=== PATIENT | female | born 1985 ===

== ENCOUNTER 2016-12-04 17:53 | Emergency (ER) | payer OTHER ==
[2016-12-04 17:53] VITALS: BMI 28.3
[2016-12-04] MEDS ORDERED: HYDROmorphone 0.5 mg/0.5 ml ISec IVP STA (18:19)
[2016-12-04] MEDS ORDERED: HYDROmorphone 0.5 mg/0.5 ml ISec ONE (18:27)
--- NOTE | 2016-12-04 18:38 | ED PDOC ---
HPI: Abdomen Time Seen by Provider: 12/04/16 18:09 Chief Complaint (Nursing): Abdominal Pain Chief Complaint (Provider): LLQ and Left Pelvic Pain History Per: Patient History/Exam Limitations: no limitations Onset/Duration Of Symptoms: Days (x 1 week) Current Symptoms Are (Timing): Still Present Additional Complaint(s): Estrellita is a 31 y/o female who presents to the ED with left pelvic and LLQ pain for the past week. Patient states that the pain was originally on and off, but today it is constant and severe. She has not taken anything for the pain and has no other medical complaints. She says that the pain is worse with intercourse. PMD: Laureano Metcalf Past Medical History Reviewed: Historical Data, Nursing Documentation, Vital Signs Vital Signs: Last Vital Signs Temp 98.9 F 12/04/16 18:00 Pulse 71 12/04/16 21:32 Resp 18 12/04/16 21:32 BP 133/76 12/04/16 21:32 Pulse Ox 100 12/04/16 21:32 - Medical History PMH: Kidney Stones Denies: HIV, Chronic Kidney Disease Other PMH: dermoid cysts on abdomen - Surgical History Other surgeries: Laparascopy - Family History Family History: States: Unknown Family Hx - Home Medications Home Medications: Ambulatory Orders Medication Instructions Recorded Drospir/Eth Estra/Levomefol Ca 1 tab PO DAILY 01/18/15 [Beyaz 3 mg-0.02 mg-0.451 mg] Oxycodone HCl/Acetaminophen 1 tab PO Q4 PRN #30 tab 01/20/15 [Percocet 325 mg-5 mg] Ciprofloxacin HCl [Cipro] 500 mg PO BID 7 Days tab 01/21/16 Metronidazole [Flagyl] 500 mg PO TID 7 Days tablet 01/21/16 Ibuprofen [Motrin Tab] 600 mg PO Q6 #30 tab 12/04/16 - Allergies Allergies/Adverse Reactions: Allergies Allergy/AdvReac Type Severity Reaction Status Date / Time No Known Allergies Allergy Verified 04/21/14 14:59 Review of Systems ROS Statement: Except As Marked, All Systems Reviewed And Found Negative Gastrointestinal: Positive for: Abdominal Pain (LLQ) Genitourinary Female: Positive for: Pelvic Pain (left). Negative for: Dysuria, Vaginal Discharge, Vaginal Bleeding Musculoskeletal: Negative for: Back Pain Physical Exam - Reviewed Nursing Documentation Reviewed: Yes Vital Signs Reviewed: Yes - Physical Exam Appears: Positive for: Non-toxic, No Acute Distress Head Exam: Positive for: ATRAUMATIC, NORMAL INSPECTION, NORMOCEPHALIC Skin: Positive for: Normal Color, Warm, Dry Eye Exam: Positive for: Normal appearance, EOMI, PERRL. Negative for: Nystagmus ENT: Positive for: Normal ENT Inspection Neck: Positive for: Normal, Painless ROM, Supple Cardiovascular/Chest: Positive for: Regular Rate, Rhythm. Negative for: Edema, Murmur Respiratory: Positive for: Normal Breath Sounds. Negative for: Wheezing, Respiratory Distress Gastrointestinal/Abdominal: Positive for: Normal Exam, Bowel Sounds, Soft, Tenderness (LLQ) Back: Positive for: Normal Inspection Extremity: Positive for: Normal ROM. Negative for: Pedal Edema, Deformity Neurologic/Psych: Positive for: Alert, Oriented - Laboratory Results Result Diagrams: 12/04/16 18:46 12/04/16 18:46 Medical Decision Making Medical Decision Making: Time: 18:18 Initial Impression: LLQ pain, pelvic pain - left ovarian cyst, ovarian rupture, left likely kidney stone, uti, diverticulitis Initial Plan: --BMP --Urine --Urine Dipstick --CBC --Dilaudid --Ultrasound Pelvis/Transvaginal Time: 19:00 --Patient is transferred by me to Dr. David Conley pending ultrasound. Scribe Attestation: Documented by Neeraj Barbosa, acting as a scribe for Dr. Cha Sanchez MD. Provider Scribe Attestation: All medical record entries made by the Scribe were at my direction and personally dictated by me. I have reviewed the chart and agree that the record accurately reflects my personal performance of the history, physical exam, medical decision making, and the department course for this patient. I have also personally directed, reviewed, and agree with the discharge instructions and disposition. Disposition - Clinical Impression Clinical Impression: Pelvic pain - Patient ED Disposition Is Patient to be Admitted: Transfer of Care Counseled Patient/Family Regarding: Studies Performed, Diagnosis - Disposition [facility] Disposition: Transfer of Care Disposition Time: 19:00 Condition: STABLE Additional Instructions: Please followup with your [facility] as soon as possible. If your pain returns or intensifies, please take medication and call you [facility] immediately. Return to the ER for any concerning symptoms. Prescriptions: Ibuprofen [Motrin Tab] 600 mg PO Q6 #30 tab Instructions: [facility] (ED) Forms: [employer] (Paraguayan)
[2016-12-04 18:49] LABS: BASO # 0.1 K/uL (0.0-0.2); BASO % 0.8 % (0.0-2.0); EOS % 0.6 % (0.0-4.0); MEAN CELL VOLUME 84.5 fl (81.0-99.0); MEAN CORPUSCULAR HEMOGLOBIN 27.4 pg (27.0-31.0); MEAN CORPUSCULAR HGB CONC 32.4 g/dL (33.0-37.0); MEAN PLATELET VOLUME 8.5 fl (7.2-11.7); MONO # 0.6 K/uL (0.0-0.8); MONO % 8.5 % (0.0-10.0); NEUT # 4.2 K/uL (1.8-7.0); NEUT % 61.1 % (50.0-75.0); NRBC % 0.1 % (0.0-0.0); RED CELL DISTRIBUTION WIDTH 13.4 % (11.5-14.5); WHITE BLOOD COUNT 6.8 K/uL (4.8-10.8)
[2016-12-04 19:01] LABS: BLOOD UREA NITROGEN 11 mg/dl (7-17); CALCIUM 9.4 mg/dL (8.4-10.2); CARBON DIOXIDE 24 mmol/L (22-30); CHLORIDE 107 mmol/L (98-107); GFR AFRICAN-AMERICAN > 60; GLUCOSE,RANDOM 87 mg/dL (65-105); POTASSIUM 4.2 MMOL/L (3.6-5.0); SODIUM 142 mmol/l (132-148)
--- NOTE | 2016-12-04 19:32 | ED PDOC ---
- Laboratory Results Result Diagrams: 12/04/16 18:46 12/04/16 18:46 Medical Decision Making Medical Decision Making: Time: 19:00 --Patient is signed out to me by Dr. Cha Sanchez pending ultrasound. Time: 2047 --US Pelvis FINDINGS: Uterus/cervix: Uterus is anteverted in position. Normal uterine size and echotexture measuring 8.0 cm x 3.1 cm x 3.6 cm in transabdominal dimension. Homogeneous appearance and the endometrial stripe which measures 0.5 cm in thickness. Trace fluid is present within the cervix. No myometrial mass. Right ovary: The right ovary is normal in size and echotexture measuring 1.9 cm x 1.9 cm x 2.0 cm. Normal right ovarian color Doppler flow and spectral Doppler waveform demonstrated. Normal blood flow. Left ovary: The left ovary is normal in size and echotexture measuring 3.0 cm x 2.3 cm x 2.4 cm. Multiple small follicles are incidentally noted within this ovary. Normal left ovarian color Doppler flow and spectral Doppler waveform. Normal blood flow. Free fluid: No free fluid within the cul-de-sac. IMPRESSION: 1. Normal appearance of the ovaries. No ovarian or adnexal mass or torsion. 2. Trace endocervical fluid. Correlate with phase of menstruation. Otherwise normal appearance of the uterus and endometrium. Time: 2115 --Upon provider reevaluation patient, is feeling better, medically stable and requires no further treatment in the ED at this time. Patient will be discharged home with Rx for Motrin 600mg. Counseling was provided and all questions were answered regarding diagnosis and need for follow up with [facility] as soon as possible. There is agreement to discharge plan. Return if symptoms persist or worsen. Clinical Impression: Pelvic pain Scribe Attestation: Documented by Neeraj Barbosa, acting as a scribe for Dr. David Conley MD. Provider Scribe Attestation: All medical record entries made by the Scribe were at my direction and personally dictated by me. I have reviewed the chart and agree that the record accurately reflects my personal performance of the history, physical exam, medical decision making, and the department course for this patient. I have also personally directed, reviewed, and agree with the discharge instructions and disposition. Disposition Counseled Patient/Family Regarding: Studies Performed, Diagnosis, Need For Followup, Rx Given - Clinical Impression Clinical Impression: Pelvic pain - POA Present On Arrival: None - Disposition [facility]errals[facility] [[facility]] Disposition: Routine/Home Disposition Time: 21:16 Condition: STABLE Additional Instructions: Please followup with your [facility] as soon as possible. If your pain returns or intensifies, please take medication and call you [facility]ORIST immediately. Return to the ER for any concerning symptoms. Prescriptions: Ibuprofen [Motrin Tab] 600 mg PO Q6 #30 tab Instructions: [facility] (ED) Forms: [employer] (Jordanian)
[2016-12-04 21:06] VITALS: TEMP 98.9
[2016-12-04 21:32] VITALS: BP 133/76; PULSE 71; RESP 18; O2SAT 100
--- NOTE | 2016-12-05 09:27 | US ---
HISTORY: left pelvic pain COMPARISON: None available. TECHNIQUE: Transabdominal and transvaginal pelvic ultrasound was performed FINDINGS: UTERUS: Measures 8.0 x 3.1 x 3.6 cm. Normal in size and appearance. No fibroid or other mass lesion seen. ENDOMETRIUM: Measures 6.0 mm in diameter. The central endometrial complex is normal in appearance. CERVIX: No cervical abnormality identified. There is small amount of fluid in the endocervical canal. RIGHT OVARY: Measures 1.9 x 1.9 x 2.0 cm. No solid mass. Normal flow. LEFT OVARY: Measures 3.0 x 2.2 x 2.4 cm. No solid mass. Normal flow. FREE FLUID: No significant free fluid noted. OTHER FINDINGS: None. IMPRESSION: No evidence of fibroid uterus, ovarian cyst or adnexal mass.
== END 2016-12-04 21:41 | disposition home or self-care (01) ==
LOC: H.ER 17:53
DX: R10.2 Pelvic and perineal pain (principal); N83.202 Unspecified ovarian cyst, left side; Z87.442 Personal history of urinary calculi
CPT/HCPCS: 76830; 76856; 80048; 81025; 85025; 96374; 96375; 99283; J1170; J1885

== ENCOUNTER 2017-01-27 22:39 | Emergency (ER) | payer OTHER ==
[2017-01-27 22:39] VITALS: BMI 28.3
[2017-01-27 23:54] VITALS: TEMP 97.8; O2SAT 100
[2017-01-28] MEDS ORDERED: Sodium Chloride 0.9% 1,000 ML IV STA (00:22)
--- NOTE | 2017-01-28 00:32 | ED PDOC ---
HPI: Abdomen Time Seen by Provider: 01/27/17 23:55 Chief Complaint (Nursing): Abdominal Pain History Per: Patient History/Exam Limitations: no limitations Onset/Duration Of Symptoms: Hrs Current Symptoms Are (Timing): Still Present Severity: Severe Pain Scale Rating Of: 9 Location Of Pain/Discomfort: RUQ, RLQ Quality Of Discomfort: Sharp, Cramping Associated Symptoms: Chills, Nausea, Diarrhea (2x episodes ). denies: Fever, Vomiting Exacerbating Factors: None Alleviating Factors: None Last Bowel Movement: Today Additional Complaint(s): 31 YO Female with PMH of renal stones, osteomylitis and dermoid cyst presents to [facility] ED for abdominal pain. Per pt, the pain started yesterday around 1AM and has gradually worsened throughout the course of the day. Pain was initially rated as a 6/10 but currently rated as a 9/10. Pain started in the RUQ and has moved to the RLQ, and described as sharp and cramping in nature. In addition to the pain, pt has had poor appetite for the past two days, chills, nausea and 2x of diarrhea (yellow-brown, non-bloody). No changes in diet, eats at home, no sick contracts and no one at home with similar symptoms at home. Denies chest pain, dyspnea, v/d/c, dysuria, hematuria, urinary frequency. PMH: kidney stones, osteomylitis, dermoid cyst Surghx: dermoid cyst, osteomylitis SH: denies smoking (tried in past), and illict drugs, social ETOH FH: unknown by pt Allergies: NKDA Meds: none Abnormal Vaginal Bleeding: No Last Menstral Period: 01/04/17 Past Medical History Vital Signs: Last Vital Signs Temp 97.8 F 01/27/17 23:50 Pulse 89 01/27/17 23:50 Resp 16 01/27/17 23:50 BP 121/77 01/27/17 23:50 Pulse Ox 100 01/28/17 02:24 - Medical History PMH: Kidney Stones Denies: HIV, Chronic Kidney Disease - Surgical History Other surgeries: dermoid cyst. surgery for osteomylitis - Family History Family History: States: Unknown Family Hx - Living Arrangements Living Arrangements: Other (with partner) - Social History Current smoker - smoking cessation education provided: No Alcohol: Social Drugs: Denies - Home Medications Home Medications: Ambulatory Orders Medication Instructions Recorded Drospir/Eth Estra/Levomefol Ca 1 tab PO DAILY 01/18/15 [Beyaz 3 mg-0.02 mg-0.451 mg] Oxycodone HCl/Acetaminophen 1 tab PO Q4 PRN #30 tab 01/20/15 [Percocet 325 mg-5 mg] Ciprofloxacin HCl [Cipro] 500 mg PO BID 7 Days tab 01/21/16 Metronidazole [Flagyl] 500 mg PO TID 7 Days tablet 01/21/16 Ibuprofen [Motrin Tab] 600 mg PO Q6 #30 tab 12/04/16 Naproxen [Naprosyn] 500 mg PO Q12 #14 tab 01/28/17 traMADol [Ultram] 50 mg PO Q6 PRN #12 tab 01/28/17 - Allergies Allergies/Adverse Reactions: Allergies Allergy/AdvReac Type Severity Reaction Status Date / Time No Known Allergies Allergy Verified 04/21/14 14:59 Review of Systems Constitutional: Positive for: Chills. Negative for: Fever Eyes: Negative for: Vision Change ENT: Negative for: Ear Pain Cardiovascular: Negative for: Chest Pain, Palpitations Respiratory: Negative for: Cough, Shortness of Breath Gastrointestinal: Positive for: Nausea, Abdominal Pain, Diarrhea (x 2). Negative for: Vomiting Genitourinary Female: Negative for: Dysuria, Frequency, Hematuria Neurological: Negative for: Weakness, Numbness, Confusion Psych: Negative for: Depression Physical Exam - Physical Exam Appears: Positive for: Well, Uncomfortable Head Exam: Positive for: ATRAUMATIC, NORMAL INSPECTION Skin: Positive for: Normal Color, Warm, Dry Eye Exam: Positive for: Normal appearance, EOMI Neck: Positive for: Normal, Painless ROM Cardiovascular/Chest: Positive for: Regular Rate, Rhythm. Negative for: Murmur Respiratory: Positive for: Normal Breath Sounds. Negative for: Wheezing Gastrointestinal/Abdominal: Positive for: Bowel Sounds, Soft, Tenderness ( Tenderness to palpation of RUQ, RLQ), Rebound (pos rebound tenderness ), Other ( Vasquez's sign pos, psoas sign pos, obturator sign pos). Negative for: Distended , Guarding Back: Negative for: L CVA Tenderness, R CVA Tenderness Extremity: Positive for: Normal ROM. Negative for: Pedal Edema Neurologic/Psych: Positive for: Alert, Oriented - Laboratory Results Result Diagrams: 01/28/17 00:35 01/28/17 00:35 - ECG O2 Sat by Pulse Oximetry: 100 - Progress ED Course And Treament: 31 YO Female with hx of renal stones, dermoid cyst is seen in ED for abdominal pain. CBC, CMP, UA, Urine preg test, tranvag u/s, RUQ u/s Toradol for pain, Zofran for nausea and IV fluids ordered Urine preg test neg CBC, CMP wnl UA sig for elevated RBC, urine specific gravity, urobilinogen, and H calcium oxalate crystals Pt given 1x of percocet for pain Imaging appreciated EXAM: US Abdomen Limited, Right Upper Quadrant CLINICAL HISTORY: 31 years old, female; Pain; Other: Ruq pain TECHNIQUE: Real-time ultrasound of the right upper quadrant with image documentation. 4 Real time cine loop images are submitted. COMPARISON: CT - ABD PELVIS W/O PO OR IV CONT 2015-01-09 19:07 FINDINGS: Artifacts: Limited due to bowel gas shadowing. Limited due to shadowing from the ribs. Liver: Echogenic fatty liver measuring 17.5 cm. There are 2 hypodense lesion in the left lobe of the liver measuring 0.8x 0.7x 1 point and 1.6x 1.4 x 1.4 x 1.4 cm respectively.statistically these represent cysts or hemangioma. There is hepatic pedal flow in the portal vein. Limited evaluation of the liver due to shadowing. Gallbladder: Contracted gallbladder with gallbladder wall thickening.There was no right upper quadrant tenderness during the sonographic examination. Correlation with patient 's pain medication status is recommended. No gallstones. Common bile duct: Normal common bile duct measuring 3 mm. No stones. No dilation. Pancreas: The pancreas is not well-seen. Right kidney: The right kidney measures 10.9 x 5.5 x 4.0 cm. No stones. No hydronephrosis. IMPRESSION: 1. Contracted gallbladder with gallbladder wall thickening.There was no right upper quadrant tenderness during the sonographic examination. Correlation with patient's pain medication status is recommended. 2. Normal common bile duct measuring 3 mm. EXAM: US Duplex Arterial/Venous of the Pelvis, Complete CLINICAL HISTORY: 31 years old, female; Pain; Other: Rt pelvic pain; Additional info: Right pelvic pain TECHNIQUE: Real-time duplex ultrasound scan of the arterial and venous flow of the pelvis with color Doppler flow and spectral waveform analysis. Endovaginal images are submitted. COMPARISON: PELVIS/TRANSVAG US 2016-12-04 19:58 FINDINGS: Uterus/cervix: The anteverted uterus measures 8.8 x 4.8 x 3.8 cm. The endometrial stripe measures 4 mm. There is fluid in the endocervical canal. Possible tiny fluid near the uterus seen on image 29 series 2. No myometrial mass. Right ovary: There is a large right ovarian simple cyst measuring 5.9 x 4.4 x 5.7 cm which is new when compared to prior examination from December 04, 2016. The right ovary measures 6.5 x 6.3 x 5.3 cm. Duplex assessment demonstrates presence of color Doppler signal and spectral Doppler waveform in right ovary. No torsion. Left ovary: The left ovary measures 3.6 x 3.0 x 3.8 cm. Duplex assessment demonstrates presence of color Doppler signal and spectral Doppler waveform in left ovary. No torsion. No significant free pelvic fluid. There is left ovarian dominant follicle measuring 1.6 x 2.1 x 1.4 cm. impression. IMPRESSION: 1. There is a large right ovarian simple cyst measuring 5.9 x 4.4 x 5.7 cm which is new when compared to prior examination from December 04, 2016. 2. Left ovarian dominant follicle Pt seen and reassessed. Pain likely 2/2 to ovarian cyst. Results reviewed with pt. Pt see's Dr. Maryana BATES and will follow up with him as out pt. Tramadol and Naproxen rx given ER precautions given Disposition - Clinical Impression Clinical Impression: Ovarian cyst - Patient ED Disposition Is Patient to be Admitted: No - Disposition [facility]] Disposition: Routine/Home Disposition Time: 02:37 Condition: STABLE Additional Instructions: Please return to ED for worsening pain, severe cramping pain, nausea, vomiting Persistent fever over 100.4 with tylenol Prescriptions: Naproxen [Naprosyn] 500 mg PO Q12 #14 tab traMADol [Ultram] 50 mg PO Q6 PRN #12 tab PRN Reason: abdominal pain Forms: [employer] (French)
[2017-01-28 00:47] LABS: BASO % 0.5 % (0.0-2.0); EOS # 0.1 K/uL (0.0-0.7); EOS % 0.9 % (0.0-4.0); HEMATOCRIT 37.9 % (34.0-47.0); MEAN CELL VOLUME 85.7 fl (81.0-99.0); MEAN CORPUSCULAR HEMOGLOBIN 27.8 pg (27.0-31.0); MEAN CORPUSCULAR HGB CONC 32.4 g/dL (33.0-37.0); MEAN PLATELET VOLUME 8.5 fl (7.2-11.7); MONO # 0.7 K/uL (0.0-0.8); MONO % 7.7 % (0.0-10.0); NEUT # 5.6 K/uL (1.8-7.0); NEUT % 58.9 % (50.0-75.0); RED CELL DISTRIBUTION WIDTH 13.6 % (11.5-14.5); WHITE BLOOD COUNT 9.5 K/uL (4.8-10.8)
[2017-01-28 00:56] LABS: ALB/GLOB RATIO 1.3 (1.0-2.1); ALKALINE PHOSPHATASE 74 U/L (38-126); ALT/SGPT 36 U/L (9-52); AST/SGOT 34 U/L (14-36); BILIRUBIN,TOTAL 0.3 mg/dl (0.2-1.3); BLOOD UREA NITROGEN 15 mg/dl (7-17); CALCIUM 9.3 mg/dL (8.4-10.2); CARBON DIOXIDE 29 mmol/L (22-30); CHLORIDE 104 mmol/L (98-107); GFR AFRICAN-AMERICAN > 60; GLUCOSE,RANDOM 96 mg/dL (65-105); LIPASE 150 U/L (23-300); POTASSIUM 4.1 MMOL/L (3.6-5.0); SODIUM 138 mmol/l (132-148); TOTAL PROTEIN 7.4 G/DL (6.3-8.2)
[2017-01-28 00:56] LABS: RBC URINE 5 /hpf (0-3); URINE BACTERIA RARE (<OCC); URINE BILIRUBIN NEGATIVE (NEGATIVE); URINE BLOOD NEGATIVE (NEGATIVE); URINE CALCIUM OXALATE CRYSTALS OCC /hpf (<OCC); URINE COLOR YELLOW (YELLOW); URINE GLUCOSE (UA) NEG (Normal); URINE KETONE NEGATIVE (NEGATIVE); URINE LEUKOCYTE ESTERASE NEG Leu/uL (Negative); URINE PROTEIN 30 mg/dL (NEGATIVE); WBC URINE 1 /hpf (0-5)
[2017-01-28] MEDS ORDERED: Oxycodone/Acetaminophen 5/325 mg Tab PO STA (02:27)
[2017-01-28] MEDS ORDERED: Oxycodone/Acetaminophen 5/325 mg Tab ONE (02:34)
[2017-01-28 02:40] VITALS: BP 135/79; PULSE 81; RESP 18
--- NOTE | 2017-01-28 12:20 | US ---
HISTORY: RUQ pain COMPARISON: None. TECHNIQUE: Sonographic evaluation of the right upper quadrant of the abdomen. FINDINGS: LIVER: Measures 17.5 cm in length. There are 2 small hypoechoic foci identified in the left lobe liver which are well circumscribed. The larger is seen more laterally and inferiorly measuring 1.6 x 1.4 x 1.4 cm and the small measure 1.0 x0.8 by 0.8 cm. Further, hepatic echogenicity is increased suggesting diffuse fatty infiltration or other diffuse delete infiltrate of parenchymal process. GALLBLADDER: The gallbladder is completely contracted and is poorly evaluated as result. COMMON BILE DUCT: Measures 3.1 mm. No stones. No dilatation. PANCREAS: Unremarkable as visualized. No mass. No ductal dilatation. RIGHT KIDNEY: Measures 10.9 cm in length. Normal echogenicity. No calculus, mass, or hydronephrosis. AORTA: No aneurysmal dilatation. IVC: Unremarkable. OTHER FINDINGS: None . IMPRESSION: 1. Two small hypoechoic foci at the left lobe liver require additional characterization by MRI without contrast. The do not represent typical benign hemangiomata which are usually hyperechoic rather than hypoechoic. 2. Hepatic steatosis. 3. Complete gallbladder contraction limits the evaluation of the gallbladder markedly. No ultrasound evidence of biliary tree dilatation of this time.
--- NOTE | 2017-01-28 12:32 | US ---
HISTORY: right pelvic pain COMPARISON: Transvaginal ultrasound dated 12/04/2016. TECHNIQUE: Transvaginal pelvic ultrasound was performed with longitudinal and transverse images submitted for interpretation. FINDINGS: UTERUS: Measures 8.8 x 4.8 x 3.8 cm. Normal in size and appearance. No fibroid or other mass lesion seen. ENDOMETRIUM: Measures 4.1 mm in diameter. Trace fluid is seen in the lower uterine segment portion of the endometrial cavity as well as the endocervical canal. CERVIX: No cervical abnormality identified. RIGHT OVARY: Measures 6.5 x 6.3 x 5.3 cm. Wall is no solid mass appreciated, the right ovary is enlarged by will large cystic ovarian cyst measuring 5.9 x 4.4 cm, avascular on color ultrasound with smooth peripheral margins and no nodularity or septation related. Clinical correlation is advised as well as follow-up transvaginal pelvic ultrasound in 1-2 menstrual cycles. Normal flow. LEFT OVARY: Measures 3.6 x 3.0 x 3.8 cm. No solid mass. Normal flow. FREE FLUID: No significant free fluid noted. OTHER FINDINGS: None. IMPRESSION: The right ovary is enlarged by a 5.9 cm simple ovarian cyst probably reflecting a follicular cyst. Clinical correlation is advised as well as follow-up transvaginal pelvic ultrasound as discussed above. Remainder the examination appears remarkable only for trace fluid in the lower uterine segment of the endometrial cavity and a within the endocervical canal as well.
== END 2017-01-28 02:40 | disposition home or self-care (01) ==
LOC: H.ER 22:39
DX: N83.201 Unspecified ovarian cyst, right side (principal); Z87.442 Personal history of urinary calculi; K76.0 Fatty (change of) liver, not elsewhere classified
CPT/HCPCS: 76705; 76830; 80053; 81003; 81025; 83690; 85025; 96360; 99283; J1885; J2405; J7040

== ENCOUNTER 2017-01-31 06:08 | Day surgery (SDC) | payer OTHER ==
[2017-01-29 15:15] VITALS: BMI 29.0
[2017-01-31] MEDS ORDERED: Lactated Ringer's 1,000 ML IV ONE ×2 (07:00→08:00)
[2017-01-31 07:25] VITALS: RESP 18
[2017-01-31] MEDS ORDERED: Lidocaine 4% (Laryng-O-Jet) Kit MM ONE (07:28)
[2017-01-31] MEDS ORDERED: Succinylcholine 200 mg/10 ml Inj IV ONE (07:28)
[2017-01-31] MEDS ORDERED: Neostigmine Methylsulfate 3mg/3ml Syringe IV ONE (07:28)
[2017-01-31] MEDS ORDERED: ceFAZolin IV 1 gm in Dextrose 2 GM/100 ML BAG IVPB ONE (07:31)
[2017-01-31] MEDS ORDERED: Bupivacaine 0.5% Inj(30mL) ONE (07:31)
[2017-01-31] MEDS ORDERED: Oxycodone/Acetaminophen 5/325 mg Tab PO ONE ×2 (09:39→15:15)
--- NOTE | 2017-01-31 09:41 | CP.SDSHP ---
Same Day Surgery H & P - Allergies Allergies: Allergies surgical tapes Allergy (Uncoded 01/31/17 07:06) ITCHING - Physical Exam Vital Signs: Vital Signs 01/31/17 07:00 Temperature 98.5 F Pulse Rate 71 Respiratory 18 Rate Blood Pressure 118/76 O2 Sat by Pulse 99 Oximetry Short Stay Discharge - Short Stay Discharge Admitting Diagnosis/Reason for Visit: N83.20 D36.9 R10.2 N93.9 Referrals: Laureano Metcalf MD [Primary Care Provider] - Progress Note/Discharge Note with Instructions: doing well d/c home f/u with Willian in one week NPV no heavy lifting percocet motrin and cloace rx provided
[2017-01-31] MEDS: HYDROmorphone 0.5 mg/0.5 ml ISec IVP PRN ×3 (10:40→11:25)
[2017-01-31 13:54] VITALS: O2SAT 100
[2017-01-31 17:35] VITALS: BP 126/70; PULSE 77; TEMP 98.4
--- NOTE | 2017-02-01 14:33 | OP ---
PREOPERATIVE DIAGNOSIS: Left ovarian cyst. POSTOPERATIVE DIAGNOSIS: Left ovarian cyst with pelvic adhesions. SURGEON: Sae Dorsey MD BACCARAT MANAGER: Fco Campo DO. He was instrumental in the care of the patient. He helped to create exposure; was helpful in suction, irrigation and extraction of the specimen. The procedure would not have been possible without his assistance. ANESTHESIA: General. ANESTHESIA ADMINISTERED BY: Vania Cohen MD ESTIMATED BLOOD LOSS: 10 mL. URINE OUTPUT: Piper catheter put out approximately 500 mL of clear urine. FLUIDS: The patient received approximately 1300 mL of D5 LR intraoperatively. OPERATIVE FINDINGS: Right ovarian cyst; normal uterus, tubes; prominent 7 cm right ovarian cyst in the cul-de-sac; right adhesions from tip to this pelvic side wall from previous cystectomy. COMPLICATIONS: None. DESCRIPTION OF PROCEDURE: After informed consent was obtained, the patient was taken to the operating room where she was given general anesthesia. She was prepped and draped in the normal sterile fashion. The patient was placed in dorsal lithotomy position. A speculum was inserted into the vagina. The cervix was visualized, grasped with a single tooth tenaculum and gently dilated. A HUMI uterine manipulator was inserted into the uterine cavity as a means to manipulate the uterus. Attention was then turned to the abdomen where an 8 mm incision was made in the umbilical fold. Marcaine was infused and Veress needle was inserted into the patient's abdominal cavity. Placement was confirmed with a fluid-filled syringe. The abdomen was then insufflated to 15 mmHg. An 8 mm robotic port was then introduced into the abdominal cavity and placement was confirmed with the laparoscope. The abdomen was surveyed with the findings noted above. Attention was then turned to approximately 5 cm superior to the right anterior iliac crest. Marcaine was infused and an incision was made and 8 mm robotic port was introduced into direct visualization. Similar procedure was performed on the left. The patient was then placed in steep Trendelenburg. The table lowered. The robot was brought along the patient's side and docked without complication. Instruments used for the surgery were grasper, scissor, and PK dissector. The instruments were then broke scrub, and proceeded to the surgical console. Attention was then turned to the right ovarian cyst, it was grasped with the grasper and cortex was scored with a scissor and then undermined with the PK dissector. The cyst ruptured intraoperatively and the cyst wall was then peeled from the ovary using a series of both sharp and blunt dissection. The suction bookstore manager was then inserted into the abdomen. The irrigant was removed. The ovary was irrigated. Hemostasis was obtained using the PK dissector. All specimens were extracted from the abdomen. All instruments were then removed from the abdomen and the patient was undocked from the robot successfully. All incisions were closed with Dermabond. All sponges, lap, needles, and instrument counts were correct x2 and the patient was awakened from general anesthesia and taken to the recovery room in awake and stable condition. Sae Dorsey MD
== END 2017-01-31 17:40 | disposition home or self-care (01) ==
LOC: H.OPSURG 06:08
PROVIDERS: ATTEND Obstetrics & Gynecology Gynecology
DX: N83.202 Unspecified ovarian cyst, left side (principal); N93.9 Abnormal uterine and vaginal bleeding, unspecified; E66.9 Obesity, unspecified; N73.6 Female pelvic peritoneal adhesions (postinfective)
CPT/HCPCS: 36415; 58662; 86850; 86900; 88305; J0330; J0690; J1170; J2710; J7120